=== PATIENT | female | born 1990 | race American Indian/Alaskan Native ===

== ENCOUNTER 2022-02-09 05:00 | Emergency (ER) | payer MEDICAID ==
[2022-02-09 06:04] LABS: Basophils % (Auto) 0.3 % (0.0-1.8); Eosinophils % (Auto) 0.3 % (0.0-4.3); Hematocrit 37.6 % (30.3-42.9); Hemoglobin 12.1 gm/dl (10.1-14.3); Lymphocytes % (Auto) 26.2 % (13.4-35.0); Mean Corpuscular HGB Conc 32 % (30-34); Mean Corpuscular Volume 80 fl (79-97); Monocytes # (Auto) 0.6 K/mm3 (0.0-0.8); Monocytes % (Auto) 7.9 % (0.0-7.3); Platelet Count 270 K/mm3 (140-440); Red Blood Count 4.68 M/mm3 (3.65-5.03); Red Cell Distribution Width 15.3 % (13.2-15.2)
[2022-02-09 06:17] LABS: Alanine Aminotransferase 15 units/L (7-56); Albumin 4.6 g/dL (3.9-5); Blood Urea Nitrogen 5 mg/dL (7-17); Calcium 9.3 mg/dL (8.4-10.2); Hemolysis Index 9
[2022-02-09 06:18] LABS: BUN/Creatinine Ratio 8
[2022-02-09] MEDS ORDERED: levETIRAcetam 500 MG TAB PO ONE (06:50)
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
[2022-02-09] MEDS ORDERED: KETOROLAC 60 MG/2 ML INJ IM ONE (14:39)
[2022-02-09 15:35] VITALS: BP 98/47
== END 2022-02-09 16:43 | disposition home or self-care (01) ==
LOC: ED 05:00
DX: F10.129 Alcohol abuse with intoxication, unspecified (principal); R56.9 Unspecified convulsions; F17.200 Nicotine dependence, unspecified, uncomplicated; Y90.9 Presence of alcohol in blood, level not specified; Z91.030 Bee allergy status
CPT/HCPCS: 36415; 80053; 84703; 85025; 96372; 99283; J1885; 80320; G0480